=== PATIENT | female | born 1935 | race Caucasian/White ===

== ENCOUNTER 2023-07-29 18:09 | Emergency (ER) | payer MEDICARE, SELFPAY ==
[2023-07-29 18:13] VITALS: BP 145/57; PULSE 93; RESP 14; TEMP 37.9; O2SAT 95
[2023-07-29 18:55] LABS: Source Nasal/Nares
[2023-07-29 19:06] LABS: Anion Gap 10.4 mmol/L (3-11); BUN 21 mg/dL (7-18); CO2 23.6 mmol/L (21.0-32.0); CREATININE 0.8 mg/dL (0.55-1.02); Calcium 8.7 mg/dL (8.5-10.1); Chloride 103 mmol/L (98-107); Estimated GFR 71.71 (mL/min/1.73m2); Glucose 112 mg/dL (74-106); Potassium 3.6 mmol/L (3.5-5.1); Sodium 137 mmol/L (136-145)
--- NOTE | 2023-07-29 19:20 | ED.GENADUL_ITS ---
Discharge Plan Disposition Patient Disposition: Home Condition: Stable Discharge Details Clinical Impression: COVID-19 ED Provider: Marlon Bennett Discharge Instructions Instructions: COVID-19 (Coronavirus Disease 2019) (ED) Additional Instructions: Please allow for plenty of rest. Please drink plenty of fluids to stay hydrated. Take Paxlovid as indicated on the label. Please contact your primary care physician to arrange follow-up. Return to the ER immediately for any worsening or new concerning symptoms. Discharge Data Discharge Date/Time-TO BE ENTERED AT DEPARTURE: 07/29/23 19:46 Medical Decision Making 88-year-old female here with mild URI symptoms and fatigue today. Patient had positive COVID test. Patient is saturating well in no respiratory distress. Labs to assess renal function reviewed and normal renal function. [id number] COVID test here negative. PCR test is positive. Plan to initiate treatment with Paxlovid. Patient provided informed consent to proceed with treatment. Plan for outpatient follow-up with PCP. Usual customary discharge instructions were reviewed. HPI General Mode of arrival: ambulatory . Date/Time Provider Initiated Documentation: 07/29/23 18:12 . Limitations to Documentation: no limitations . Information obtained by: patient . HPI Narrative: 88-year-old female who is relatively healthy presents with chief complaint of positive COVID test. Patient notes that she had some mild URI symptoms. Was fatigued this morning. Took home COVID test that was positive. She is not vaccinated. She thinks she may have had COVID in the past. Patient denies shortness of breath. General Stated Complaint: RespSymp KAVITA: 4 Review of Systems Constitutional Constitutional: Denies fever(s) Cardiovascular Cardiovascular: Denies chest pain and Denies dyspnea Respiratory Respiratory: Denies dyspnea PFSH All Active Problems (Updated 07/29/23 @ 19:34 by Marlon Bennett MD) COVID-19 (Acute) Social History Smoking risk assessment performed?: No Exam Const General: cooperative and no acute distress HENMT Mouth: moist mucous membranes Eyes Conjunctivae: normal conjunctivae Sclera: normal sclerae Resp Auscultation: clear to auscultation bilaterally, no rales, no rhonchi and no wheezes Cardio Rate: regular rate and not tachycardic Rhythm: regular rhythm Neuro General: patient alert, patient awake and tone normal Course Vital Signs Vital signs: Vital Signs Temperature 37.9 C H 07/29/23 18:13 Pulse 93 H 07/29/23 18:13 Respiratory Rate 14 07/29/23 18:13 Blood Pressure 145/57 H 07/29/23 18:13 Pulse Oximetry 95 07/29/23 18:13 Temperature 37.9 C H 07/29/23 18:13 Temperature Source Oral 07/29/23 18:13 Pulse 93 H 07/29/23 18:13 Respiratory Rate 14 07/29/23 18:13 Respiratory Effort Normal 07/29/23 18:32 Blood Pressure 145/57 H 07/29/23 18:13 Blood Pressure Position Sitting 07/29/23 18:13 Pulse Oximetry 95 07/29/23 18:13 Oxygen Delivery Method Room Air 07/29/23 18:13 Oxygen Flow Rate 0 07/29/23 18:13 Pain Level 0 07/29/23 18:13 Lab/Test Results Lab/Test Results: Laboratory Tests Range/Units 07/29/23 07/29/23 18:49 18:49 Sodium (136-145) mmol/L 137 Potassium (3.5-5.1) mmol/L 3.6 Chloride (98-107) mmol/L 103 Carbon Dioxide (21.0-32.0) mmol/L 23.6 Anion Gap (3-11) mmol/L 10.4 BUN (7-18) mg/dL 21 H Creatinine (0.55-1.02) mg/dL 0.8 Est GFR (CKD-EPI 2020) (mL/min/1.73m2) 71.71 Glucose (74-106) mg/dL 112 H Calcium (8.5-10.1) mg/dL 8.7 COVID-19 Source Nasal/Nares PAWSS Have you Been Recently Intoxicated or Drunk Within the Last 30 days?: No Have you Ever Experienced Previous Episodes of Alcohol Withdrawal?: No Have you ever Experienced Withdrawal Seizures?: No Have you ever Experienced Delirium Tremens(DT)s?: No Have you ever undergone Alcohol Rehabilitation Treatment (i.e, inpt ot outpatient treatment programs)?: No Have you ever Experienced Blackouts?: No Have you ever Combined Alcohol with other Downers within the last 90 days?: No Have you ever Combined Alcohol with any other Substance of Abuse during the last 90 days?: No Positive Blood Alcohol level on Presentation? [PCS.BAL]: No Evidence of Increased Autonomic Activity (i.e. HR>120, tremor, sweating, agitation, nausea)?: No Result: 0
[2023-07-29 19:33] LABS: COVID-19 PCR POSITIVE (Negative)
== END 2023-07-29 19:46 | disposition home or self-care (01) ==
LOC: ER 20:07
PROVIDERS: Emergency Provider Student in an Organized Health Care Education/Training Program
DX: R50.9 Fever, unspecified (principal); U07.1 COVID-19
CPT/HCPCS: 80048; 87635; 99283; 99282

== ENCOUNTER 2025-07-12 09:26 | Emergency (ER) | payer MEDICARE, SELFPAY ==
--- NOTE | 2025-07-12 09:15 | RT.EKG_ITS ---
APPROVED REPORT Exam: Resting ECG Reason for Exam: SOB Patient Location: E HR:73 bpm ECG Measurements Heart Rate 73 AXIS SD 181 P 58 QRSd 90 QRS 19 QT 377 T 38 QTc 415 Conclusion Sinus rhythm...normal P axis, V-rate 60- 99
[2025-07-12 09:35] VITALS: BP 142/90; PULSE 77; RESP 16; TEMP 36.5; O2SAT 97
--- NOTE | 2025-07-12 09:53 | W.ED.GENAD ---
Discharge Plan Disposition Patient Disposition: Home Condition: Stable Discharge Details Clinical Impression: Mass of skin of left forearm, Pleural effusion on right, Anemia Primary Care Provider: Unknown,Unknown ED Provider: Amanda Andrade Discharge Instructions Instructions: Melanoma Skin Cancer (DC), Hematocrit Test, Anemia, Possibly From Low Iron, Adult ED, Pleural effusion - Discharge instructions Additional Instructions: At this time I am very concerned for the lesion on your forearm, you have a small pleural effusion or fluid in the right lower part of your lung. Your hemoglobin was 8.9 and hematocrit was 29.7 today. A referral for care management was placed to get you in within the next week for dermatology. You may also call down to [facility] to get an appointment with dermatology yourself. Please return to the ER for any worsening shortness of breath, cough, chest pain, dizziness lightheadedness or concerns. Please continue taking your previously prescribed medications. Thank you for allowing us to care for you today. Referrals: [facility] [Provider Group] Referral Note: ER follow up and establish care Clinical Impression: Mass of skin of left forearm; Anemia; Pleural effusion on right [facility] [Outside, Dermatology] Referral Note: Left Forearm skin mass, Concern for Melanoma Clinical Impression: Mass of skin of left forearm Primary Care Provider [Outside] Discharge Data Discharge Date/Time-TO BE ENTERED AT DEPARTURE: 07/12/25 12:21 HPI General Mode of arrival: ambulatory. Date/Time Provider Initiated Documentation: 07/12/25 09:32. Limitations to Documentation: no limitations. Information obtained by: patient, RN notes reviewed and old records reviewed. HPI Narrative: 89-year-old female presents to the ER with a chief complaint of shortness of breath, mild productive cough. She reports that approximately a month ago she needed to get approximately 4 units of PRBCs for low iron which she is taking. She is here for recheck. She does not have a primary care provider in the area she lives mainly in [place]. She does come up here for the love. Lungs are clear to auscultation bilaterally, she is speaking in full sentences. O2 sat is 97% on room air. No significant pallor noted. Denies any other associated symptoms or concerns. Of note there is a large skin growth noted to her left anterior forearm concerned for melanoma. She reports she has been referred to a [employer] developer back in [place] but has yet to follow-up with this. Denies any other growths or skin areas of concern. General Stated Complaint: GenMedical KAVITA: 3 Review of Systems All systems reviewed & are unremarkable except as noted in HPI and below Constitutional Constitutional: Denies snoring Cardiovascular Cardiovascular: Reports dyspnea Respiratory Respiratory: Reports as per HPI, Reports cough, Denies excessive phlegm production, Denies pain on inspiration, Denies pain with cough, Reports dyspnea, Denies snoring, Denies stridor and Denies wheezing Integumentary/Breasts Skin/Breast: Reports as per HPI, Reports change in pigmentation, Reports changing lesions and Reports lesions (Left anterior forearm) Allergic/Immunologic Allergic/Immunologic: Denies wheezing Exam Narrative Exam Narrative: Constitutional: Alert and oriented x3. Appears stated age. Normal body habitus. Head: Normocephalic, no trauma. Eyes: Pupils PERRL, Red reflex noted, EOM's intact. Eyelids symmetrical without lesions, discharge, or swelling. ENT: Bilateral TM's WNL, External ear normal to inspection, no mastoid TTP, swelling, or erythema, Nasal turbinates WNL, no nasal discharge. Normal dentition, Posterior pharynx WNL, no exudate. Chest: RRR, Normal S1, S2, distal pulses intact. Resp: Lungs clear to auscultation bilaterally, no wheezes, rales, or rhonchi in the upper lobes bilaterally. Diminished in the bases. Abdomen: Soft, non-distended, Normoactive bowel sounds all 4 quads. Musculoskeletal: Normal gait, Moves all 4 extremities without difficulty. Skin: Suspicious lesion and mass noted to left mid forearm black in color with some surrounding erythema no induration noted please see skin exam below approximately 2 cm x 1.5 cm in diameter rough surface black in color. Suspicious for melanoma. Capillary refill less than 2 sec. Neurologic: Cranial nerves II-XII intact. Alert and oriented x 3. Motor: No deficits noted. Sensory: Intact bilaterally all 4 extremities. Hematologic/Lymphatic: No ecchymosis, no lymphadenopathy. Skin Lesions: lesion noted left mid forearm size (Approximately 2 cm x 1 and half centimeter), borders irregular, color black and blue, consistency firm and fixed, morphology round and raised and surface crusted, dry, hyperpigmented and rough Course Vital Signs Vital signs: Vital Signs Temperature 36.5 C 07/12/25 09:35 Pulse 77 07/12/25 09:35 Respiratory Rate 16 07/12/25 09:35 Blood Pressure 142/90 H 07/12/25 09:35 Pulse Oximetry 97 07/12/25 09:35 Temperature 36.5 C 07/12/25 09:35 Temperature Source Oral 07/12/25 09:35 Pulse 77 07/12/25 09:35 Respiratory Rate 16 07/12/25 09:35 Blood Pressure 142/90 H 07/12/25 09:35 Pulse Oximetry 97 07/12/25 09:35 Medical Decision Making 89-year-old female presents to the ER with a chief complaint of shortness of breath, mild productive cough. She reports that approximately a month ago she needed to get approximately 4 units of PRBCs for low iron which she is taking. She is here for recheck. She does not have a primary care provider in the area she lives mainly in [place]. She does come up here for the love. Lungs are clear to auscultation bilaterally, she is speaking in full sentences. O2 sat is 97% on room air. No significant pallor noted. Denies any other associated symptoms or concerns. Of note there is a large skin growth noted to her left anterior forearm concerned for melanoma. She reports she has been referred to a [employer] middleware developer back in [place] but has yet to follow-up with this. Denies any other growths or skin areas of concern. IV, CBC CMP chest x-ray ordered did not order EKG or troponin as patient has no complaints of chest pain. Care management referral placed for [facility] dermatology within the next week. Patient is declining IV placement at this time. CBC shows white blood cell count 4.44, hemoglobin is 8.9 hematocrit 29.7 which patient reports that that is improved from her hemoglobin of 7, MCV 71 MCH 21 MCHC is 30 RDW is 23.7 platelets are 359. It does have a hypochromic hypovolemic anemia she is taking iron BUN 23 creatinine 0.9 GFR 61. Chest x-ray shows a small right pleural effusion I did discuss this with patient and family and friend they verbalized understanding. I did offer CT imaging at this time, however patient is declining at this time. Discussed risks and benefits, patient did get a call from her GI doctor from [place] while in the room. I encouraged her to continue to follow-up with her GI doctor out of state and or follow-up with a tertiary facility with GI capabilities here. Patient discharged ambulatory hemodynamically stable condition with family. This text was generated using [employer]isionation system, please disregard any oddities of phrase or misspellings. Lab Data Lab results reviewed: Yes I reviewed the patient's lab results. Labs: Laboratory Tests Range/Units 07/12/25 10:56 WBC (4.4-10.8) 10^3/uL 4.44 RBC (3.93-5.22) 10^6/uL 4.21 Hgb (11.2-15.7) g/dL 8.9 L Hct (36.0-46.0) % 29.7 L MCV (80-95) fL 71 L MCH (27.0-33.0) pg 21.1 L MCHC (32.0-36.0) % 30.0 L RDW (11.7-14.6) % 23.7 H Plt Count (130-400) 10^3/uL 359 MPV (8.0-11.0) fL 9.0 Immature Gran % % 0.2 Neutrophils % % 53.8 Lymphocytes % % 30.0 Monocytes % % 11.7 Eosinophils % % 3.8 Basophils % % 0.5 Nucleated RBC % (0.0-0.3) % 0.0 Absolute Neutrophils (1.2-6.7) 10^3/uL 2.39 Absolute Lymphocytes (1.2-3.4) 10^3/uL 1.33 Absolute Monocytes (0.1-0.8) 10^3/uL 0.52 Absolute Eosinophils (0.0-0.7) 10^3/uL 0.17 Absolute Basophils (0.0-0.2) 10^3/uL 0.02 RBC Morphology See Below Hypochromasia 2+ Anisocytosis 2+ Microcytosis 2+ Ovalocytes 2+ Sodium (136-145) mmol/L 139 Potassium (3.5-5.1) mmol/L 4.3 Chloride (98-107) mmol/L 104 Carbon Dioxide (21.0-32.0) mmol/L 26.7 Anion Gap (3-11) mmol/L 8.3 BUN (7-18) mg/dL 23 H Creatinine (0.55-1.02) mg/dL 0.9 Est GFR (CKD-EPI 2020) (mL/min/1.73m2) 61.49 Glucose (74-106) mg/dL 99 Calcium (8.5-10.1) mg/dL 9.0 Magnesium (1.8-2.4) mg/dL 2.0 Total Bilirubin (0.2-1.0) mg/dL 0.4 AST (15-37) U/L 16 ALT (14-59) U/L 16 Alkaline Phosphatase (46-116) U/L 102 Total Protein (6.4-8.2) g/dL 7.3 Albumin (3.4-5.0) g/dL 3.6 PFSH All Active Problems (Updated 07/12/25 @ 12:15 by Amanda Andrade NP) Anemia (Chronic) Pleural effusion on right (Acute) Mass of skin of left forearm (Acute) COVID-19 (Acute) Social History Smoking/Tobacco Use Status: Never Smoking risk assessment performed?: Yes Alcohol Intake: never Substance use type: does not use Housing: house Do you feel safe at home: Yes Do you feel safe in your relationship?: Yes
[2025-07-12 10:06] VITALS: BP 142/90; PULSE 77; RESP 16; TEMP 36.5; O2SAT 97
--- NOTE | 2025-07-12 10:20 | DI.RAD_ITS ---
Exam(s) XR CHEST 2V PA LATERAL EXAM: XR CHEST 2V PA LATERAL CLINICAL HISTORY: SOB. TECHNIQUE: 2D digital imaging was performed. COMPARISON: No exams were available for comparison FINDINGS: 2 views: There is a moderate size retrocardiac hiatal hernia noted. Heart size is normal. The upper mediastinum is not significantly widened. Some bilateral hyperinflation but no infiltrates. There is slight blunting of the right costophrenic angle which may indicate a small pleural effusion. No airspace pulmonary edema. IMPRESSION: Slight blunting of right costophrenic angle probably indicate small amount of right pleural fluid. No other pulmonary findings. Moderate size hiatal hernia. DATA REPOSITORY: RADIATION DOSE DELIVERED:
[2025-07-12 11:05] LABS: Abs Immature Grans 0.01 10^3/uL (0.0-0.06); HCT 29.7 % (36.0-46.0); HGB 8.9 g/dL (11.2-15.7); Immature Grans % 0.2 %; MCH 21.1 pg (27.0-33.0); MCHC 30.0 % (32.0-36.0); MCV 71 fL (80-95); MPV 9.0 fL (8.0-11.0); Platelet Count 359 10^3/uL (130-400); RBC 4.21 10^6/uL (3.93-5.22); RDW 23.7 % (11.7-14.6); RDW-SD 58.5 fL; WBC 4.44 10^3/uL (4.4-10.8)
[2025-07-12 11:27] LABS: ALT 16 U/L (14-59); AST 16 U/L (15-37); Albumin 3.6 g/dL (3.4-5.0); Alkaline Phosphatase 102 U/L (46-116); Anion Gap 8.3 mmol/L (3-11); BUN 23 mg/dL (7-18); Bilirubin, Total 0.4 mg/dL (0.2-1.0); CO2 26.7 mmol/L (21.0-32.0); Calcium 9.0 mg/dL (8.5-10.1); Chloride 104 mmol/L (98-107); Estimated GFR 61.49 (mL/min/1.73m2); Glucose 99 mg/dL (74-106); Magnesium 2.0 mg/dL (1.8-2.4); Potassium 4.3 mmol/L (3.5-5.1); Sodium 139 mmol/L (136-145); Total Protein 7.3 g/dL (6.4-8.2)
[2025-07-12 11:29] LABS: Anisocytosis 2+; Hypochromasia 2+; Microcytosis 2+; Ovalocytes 2+
== END 2025-07-12 12:21 | disposition home or self-care (01) ==
PROVIDERS: Emergency Provider Registered Nurse Emergency
DX: J90 Pleural effusion, not elsewhere classified (principal); R06.02 Shortness of breath; D64.9 Anemia, unspecified; R22.32 Localized swelling, mass and lump, left upper limb
CPT/HCPCS: 99284 ×2; 36415; 80053; 93005; 71046; 83735; 85025; 93010